=== PATIENT | male | born 1950 | race Caucasian/White ===

== ENCOUNTER 2018-03-22 14:18 | Emergency (ER) | payer MEDICARE, OTHER ==
[~2018-03-22] VITALS: Ht 182.9 cm; Wt 93.4 kg
[2018-03-22 16:11] VITALS: BP 151/87
[2018-03-22] MEDS ORDERED: cefTRIAXone SOD 1,000 MG VL IM ONE (17:00)
[2018-03-22 18:03] LABS: Urine Bacteria NONE SEEN /hpf (None Seen); Urine Blood Negative /uL (Negative); Urine Specific Gravity 1.013 (1.001-1.035); Urine WBC 1 /hpf (0 - 3)
== END 2018-03-22 18:34 | disposition home or self-care (01) ==
LOC: ER 14:24
DX: N48.1 Balanitis (principal)
CPT/HCPCS: 81001; 96372; 99283; J0696

== ENCOUNTER 2022-03-15 18:08 | Emergency (ER) | payer MEDICARE | END 2022-03-15 18:21 | disposition left against medical advice (07) | LOC: EDBD 18:08 → ER 18:09 | DX: R04.0 Epistaxis (principal); Z53.21 Procedure and treatment not carried out due to patient leaving prior to being seen by health care provider ==